=== PATIENT | male | born 1980 | race Caucasian/White ===

== ENCOUNTER 2017-04-15 19:01 | Inpatient (IN) | payer MEDICAID ==
[~2017-04-15] VITALS: Ht 167.6 cm; Wt 84.0 kg
[2017-04-15 20:37] LABS: BASOPHIL % 0.4 % (0-2); PLATELET COUNT 309 x10^3mcL (130-400)
[2017-04-15 20:39] LABS: RED CELL DISTRIBUTION WIDTH 15.4 % (11.5-14.5)
[2017-04-15 20:44] LABS: CALCIUM 8.1 mg/dL (8.5-10.1); CARBON DIOXIDE 26.6 mmol/L (21-32); CHLORIDE SERUM 104 mmol/L (98-107); CREATININE SERUM 1.9 mg/dL (0.7-1.3); GFR1 43 mL/min; GLUCOSE SERUM 106 mg/dL (74-106); POTASSIUM SERUM 3.9 mmol/L (3.5-5.1); SODIUM SERUM 139 mmol/L (136-145)
[2017-04-15 20:57] LABS: ALKALINE PHOSPHATASE 199 U/L (46-116); ALT/SGPT 89 U/L (16-63); AST/SGOT 47 U/L (15-37); BILIRUBIN TOTAL 0.6 mg/dL (0.20-1.00); FREE T4 1.38 ng/dL (0.76-1.46)
[2017-04-15 21:01] LABS: ALBUMIN 2.1 g/dL (3.4-5.0); TOTAL PROTEIN, SERUM 5.9 g/dL (6.4-8.2)
[2017-04-15 22:15] LABS: MAGNESIUM 1.6 mg/dL (1.8-2.4); PHOSPHOROUS 4.6 mg/dL (2.5-4.9)
[2017-04-15 22:16] LABS: CHOLESTEROL/HDL RATIO 4.7
[2017-04-15 22:40] VITALS: BP 155/110
[2017-04-15 22:42] VITALS: Ht 167.6 cm; Wt 84.0 kg
[2017-04-16 03:59] VITALS: BP 153/108
[2017-04-16 06:32] LABS: CALCIUM 8.7 mg/dL (8.5-10.1); CARBON DIOXIDE 29.8 mmol/L (21-32); CREATININE SERUM 1.6 mg/dL (0.7-1.3); MAGNESIUM 1.6 mg/dL (1.8-2.4); POTASSIUM SERUM 3.5 mmol/L (3.5-5.1)
[2017-04-16 06:40] VITALS: BP 135/92
[2017-04-16 07:24] LABS: BASOPHIL % 0.5 % (0-2); PLATELET COUNT 280 x10^3mcL (130-400); RED CELL DISTRIBUTION WIDTH 15.3 % (11.5-14.5)
[2017-04-16 09:45] LABS: microscopic required? NO
[2017-04-16 09:52] LABS: UA SPECIFIC GRAVITY <=1.005 (1.005-1.035); urine erythrocyte NEGATIVE (NEGATIVE)
[2017-04-16 10:07] LABS: AMPHETAMINE QUAL UR NONE DETECTED (NEG <=1000)
[2017-04-16 10:32] VITALS: BP 132/91
[2017-04-16 13:22] VITALS: BP 124/86
[2017-04-16 18:07] VITALS: BP 127/85
[2017-04-16 20:59] VITALS: BP 126/80
[2017-04-17 05:03] VITALS: BP 115/75
[2017-04-17 07:01] LABS: CALCIUM 8.6 mg/dL (8.5-10.1); CARBON DIOXIDE 32.2 mmol/L (21-32); CREATININE SERUM 1.6 mg/dL (0.7-1.3); POTASSIUM SERUM 4.5 mmol/L (3.5-5.1)
[2017-04-17 07:07] LABS: BASOPHIL % 0.4 % (0-2); PLATELET COUNT 303 x10^3mcL (130-400)
[2017-04-17 07:17] LABS: RED CELL DISTRIBUTION WIDTH 15.4 % (11.5-14.5)
[2017-04-17 08:51] VITALS: BP 132/99
[2017-04-17] MEDS ORDERED: METOPROLOL TART25 M1 PO (10:19)
[2017-04-17] MEDS ORDERED: ZES5 PO (10:22)
[2017-04-17] MEDS ORDERED: TYL325 PO (10:24)
[2017-04-17] MEDS ORDERED: LAC PO (10:28)
[2017-04-17] MEDS ORDERED: LEVAQUIN750 MG PO (10:30)
[2017-04-17 11:05] VITALS: BP 132/99
[2017-04-17] MEDS ORDERED: FUROSEMIDE20 MG PO (12:06)
[2017-04-17] MEDS ORDERED: CARVEDILOL3.125 M1 PO (12:06)
== END 2017-04-17 14:23 | disposition home or self-care (01) | DRG 139 ==
LOC: ED 19:01 → DU 21:32
PROVIDERS: Emergency Medicine; ADMIT Family Medicine
DX: J18.9 Pneumonia, unspecified organism (principal); N17.0 Acute kidney failure with tubular necrosis; I50.43 Acute on chronic combined systolic (congestive) and diastolic (congestive) heart failure; E43 Unspecified severe protein-calorie malnutrition; E11.65 Type 2 diabetes mellitus with hyperglycemia; E83.42 Hypomagnesemia; I42.0 Dilated cardiomyopathy; F13.288 Sedative, hypnotic or anxiolytic dependence with other sedative, hypnotic or anxiolytic-induced disorder; T43.621A Poisoning by amphetamines, accidental (unintentional), initial encounter; M94.0 Chondrocostal junction syndrome [Tietze]; K80.20 Calculus of gallbladder without cholecystitis without obstruction; F17.210 Nicotine dependence, cigarettes, uncomplicated; Z68.30 Body mass index [BMI] 30.0-30.9, adult; Y92.009 Unspecified place in unspecified non-institutional (private) residence as the place of occurrence of the external cause
CPT/HCPCS: 82962; 83880; 84439; G0480; J1940; J1956; J7030; J7620; Q0092